=== PATIENT | female | born 1995 | race Caucasian/White ===

== ENCOUNTER 2016-12-10 16:19 | Emergency (ER) | payer OTHER ==
[~2016-12-10] VITALS: Ht 177.8 cm; Wt 70.5 kg
[2016-12-10 16:23] VITALS: TEMP 98.4
[2016-12-10] MEDS ORDERED: ATIVAN 0.50.5 MG/TAB PO (18:28)
[2016-12-10 18:50] VITALS: BP 125/76; PULSE 74
== END 2016-12-10 18:50 | disposition home or self-care (01) ==
LOC: COL.ER 16:19
DX: R07.9 Chest pain, unspecified (principal); F41.9 Anxiety disorder, unspecified
CPT/HCPCS: J1885